=== PATIENT | female | born 1985 | race Caucasian/White ===

== ENCOUNTER 2022-06-01 08:41 | Emergency (ER) | payer OTHER, SELFPAY ==
[~2022-06-01] VITALS: Ht 160 cm; Wt 90.9 kg
[~2022-06-01 08:41] MED LIST: FERR325T27 PO; PROM-163 PO
[2022-06-01 09:12] LABS: COVID AG,FIA SOURCE NASAL SWAB
[2022-06-01 09:35] LABS: INFLUENZA TYPE B NEGATIVE FOR TYPE B (NEGATIVE)
[2022-06-01 09:39] LABS: INFLUENZA TYPE A POSITIVE FOR TYPE A (NEGATIVE)
[2022-06-01] MEDS ORDERED: KETOROLAC TROMETHAMINE 30 MG/ML VIAL IVP ONE (10:00)
[2022-06-01] MEDS ORDERED: SODIUM CHLORIDE 0.9% 1,000 ML IV ONE ×2 (10:00→11:00)
[2022-06-01] MEDS ORDERED: ACETAMINOPHEN 500 MG TABLET PO ONE (10:00)
[2022-06-01 15:19] VITALS: BP 106/79
== END 2022-06-01 15:45 | disposition home or self-care (01) ==
LOC: EMS 09:07
DX: J10.1 Influenza due to other identified influenza virus with other respiratory manifestations (principal); D64.9 Anemia, unspecified; Z20.822 Contact with and (suspected) exposure to COVID-19
CPT/HCPCS: 99285; 96374; 71045; 96361; 87426; 87804; J1885